=== PATIENT | female | born 1985 | race Caucasian/White ===

== ENCOUNTER 2018-02-08 23:02 | Observation (INO) | payer OTHER ==
[2018-02-09 01:14] VITALS: BP 86/49; PULSE 103
== END 2018-02-09 01:40 | disposition home or self-care (01) ==
LOC: UNDOADMOB 23:02 → OB 23:02 → UNDODISOB 02-09 01:40
PROVIDERS: ADMIT Family Medicine; ATTEND Family Medicine
DX: Z34.83 Encounter for supervision of other normal pregnancy, third trimester (principal)
CPT/HCPCS: G0378 ×3

== ENCOUNTER 2018-02-12 04:13 | Inpatient (IN) | payer OTHER ==
[2018-02-12] MEDS ORDERED: BRETHINE 1 MG/ML SQ PRN (04:57)
[2018-02-12] MEDS ORDERED: Zofran 4 MG/2 ML VIAL IV PRN (04:58)
[2018-02-12] MEDS ORDERED: TYLENOL EXTRA STRENGTH 500 MG PO PRN ×2 (04:58→18:56)
[2018-02-12] MEDS ORDERED: PITOCIN 30 UNITS/ LR 500 ML 500 ML IV SCH ×2 (05:00)
[2018-02-12] MEDS ORDERED: Lactated Ringers 1,000 ML IV SCH (05:00)
[2018-02-12 06:29] LABS: BASOPHIL % 0.3 % (0.0-0.4); Basophil (Absolute #) 0.03 (0-0.4); Eosinophil % 1.7 % (0.00-5.0); Eosinophil (Absolute #) 0.16 (0-0.5); Granulocytes % 67.8 % (36.0-66.0); Hematocrit 32.3 % (35-47); Hemoglobin 11.1 gm/dl (12.0-16.0); Lymphocytes % 24.3 % (24.0-44.0); Mean Corpuscular Hgb Concent. 34.4 g/dl (32-36); Monocyte (Absolute #) 0.56 (0.0-1.3); Monocytes % 5.9 % (0.0-12.0); Platelet Count 336 K/mm3 (150-450); Red Blood Count 3.63 M/mm3 (4.1-5.4); Red Cell Distribution Width 13.2 % (11.5-14.0); White Blood Count 9.5 K/mm3 (4.0-10.5)
[2018-02-12 06:30] LABS: Mean Corpuscular Hemoglobin 30.5 pg (26-32)
[2018-02-12 06:51] VITALS: O2SAT 99
[2018-02-12 07:31] LABS: Amphetamine,Urine NEGATIVE (NEGATIVE); Barbiturate,Urine NEGATIVE (NEGATIVE); Benzodiazepine,Urine NEGATIVE (NEGATIVE); Cocaine,Urine NEGATIVE (NEGATIVE); Methadone,Urine NEGATIVE (NEGATIVE); Opiate,Urine NEGATIVE (NEGATIVE); PCP,Urine NEGATIVE (NEGATIVE); THC,Urine NEGATIVE (NEGATIVE)
[2018-02-12] MEDS ORDERED: Lactated Ringers 1,000 ML IV ONE ×2 (09:14→09:24)
[2018-02-12] MEDS ORDERED: OB EPIDURAL NAROPIN/SUFENTANIL IN NACL EPIDURAL PRN ×2 (09:14→09:24)
[2018-02-12] MEDS ORDERED: Ephedrine Sulfate 50 MG/ML IV PRN (09:14)
[2018-02-12] MEDS ORDERED: Dulcolax 10 MG SUPP PR PRN (18:56)
[2018-02-12] MEDS ORDERED: TUCKS TP PRN (18:56)
[2018-02-12] MEDS ORDERED: Mylicon 80MG PO PRN (18:56)
[2018-02-12] MEDS ORDERED: Anucort-HC SUPPOSITORY PR PRN (18:56)
[2018-02-12] MEDS ORDERED: Dermoplast Spray TP PRN (18:56)
[2018-02-12] MEDS ORDERED: CORTISONE 1% CREAM TP PRN (18:56)
[2018-02-12] MEDS ORDERED: Ambien 10 MG PO PRN (18:56)
[2018-02-12] MEDS ORDERED: NORCO 5/325 MG PO PRN (18:56)
[2018-02-12] MEDS ORDERED: Restoril 15 MG PO PRN (18:56)
[2018-02-12] MEDS: MOTRIN 400 MG PO PRN (19:08)
[2018-02-12] MEDS: Colace 100 MG PO SCH (23:06)
[2018-02-13] MEDS: CLINDAMYCIN-D5W 900 MG/50 ML*** 900 MG/50 ML BAG IV SCH ×2 (00:48→00:49)
[2018-02-13] MEDS: MOTRIN 400 MG PO PRN ×3 (01:15→20:33)
[2018-02-13 07:31] LABS: Hematocrit 31.8 % (35-47); Hemoglobin 10.4 gm/dl (12.0-16.0); Mean Cell Volume 92.4 fl (78-100); Mean Corpuscular Hemoglobin 30.2 pg (26-32); Mean Corpuscular Hgb Concent. 32.7 g/dl (32-36); Mean Platelet Volume 10.3 fl (6-9.5); Red Blood Count 3.44 M/mm3 (4.1-5.4); Red Cell Distribution Width 13.3 % (11.5-14.0); White Blood Count 11.1 K/mm3 (4.0-10.5)
[2018-02-13 08:11] LABS: Platelet Count 39 K/mm3 (150-450)
[2018-02-13 10:53] LABS: BAND 1 % (0.0-2.0); Eosinophil 1 % (0.00-3.0); Lymphocytes 36 % (24-44); Monocyte 3 % (0.0-12.0); Neutrophils 59 % (36.0-66.0); Total Cells Counted 100
[2018-02-13] MEDS: FERREX 150 PO SCH (12:16)
[2018-02-13] MEDS: Colace 100 MG PO SCH ×2 (12:16→21:36)
[2018-02-14] MEDS: Colace 100 MG PO SCH (09:29)
[2018-02-14] MEDS: FERREX 150 PO SCH (09:29)
[2018-02-14 14:58] VITALS: BP 116/55; PULSE 115
== END 2018-02-14 14:00 | disposition home or self-care (01) | DRG 775 ==
LOC: OB 05:18 → OBSVTOIN 08:25
PROVIDERS: ADMIT Family Medicine; ATTEND Family Medicine
PROC: 10E0XZZ Delivery of Products of Conception, External Approach (ICD-10-PCS; principal; 2018-02-12)
DX: O80 Encounter for full-term uncomplicated delivery (principal); Z3A.39 39 weeks gestation of pregnancy; Z37.0 Single live birth
CPT/HCPCS: 36415; 80307; 81003; 85025; G0378; J2590; J2795; A9270-GY

== ENCOUNTER 2020-01-10 15:11 | Emergency (ER) | payer OTHER ==
[2020-01-10] MEDS ORDERED: Sodium Chloride 0.9% 1000 ML 1,000 ML IV STA ×2 (15:16→17:03)
[2020-01-10] MEDS ORDERED: Sodium Chloride 0.9% 1000 ML 2,000 ML ONE (15:18)
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
[2020-01-10 15:40] LABS: A-aADO2 48; ABG HEMOGLOBIN 11.2; ABG POTASSIUM 3.4 (3.5-5.1); ABG SITE LEFT RADIAL; ARTERIAL BLD GAS O2 SATURATION 96.9 % (95-100); ARTERIAL BLOOD GAS FIO2 21 %; ARTERIAL BLOOD GAS PCO2 23 mmHg (35-45); ARTERIAL BLOOD GAS PO2 73 mmHg (75-100); ARTERIAL BLOOD GAS pH 7.47 (7.35-7.45); CARBOXYHEMOGLOBIN 4.3 % THgb (0.0-6.9); HCO3- 16.7 (22-28); HGB O2 SAT 91.9 g/dF (94-100); Methhemoglobin 0.8 % (1.4-1.5)
[2020-01-10 15:41] LABS: ALLEN TEST OK? YES
[2020-01-10 15:50] LABS: Basophil (Absolute #) 0 (0-0.4); Eosinophil (Absolute #) 0 (0-0.5); Hematocrit 31.2 % (35-47); Hemoglobin 10.9 gm/dl (12.0-16.0); Mean Cell Volume 88.4 fl (78-100); Mean Corpuscular Hemoglobin 30.9 pg (26-32); Mean Corpuscular Hgb Concent. 34.9 g/dl (32-36); Red Blood Count 3.53 M/mm3 (4.1-5.4); Red Cell Distribution Width 13.4 % (11.5-14.0); White Blood Count 4.6 K/mm3 (4.0-10.5)
[2020-01-10 16:01] LABS: ALBUMIN 2.2 g/dL (3.5-5.0); ALKALINE PHOSPHATASE 215 U/L (38-126); ANION GAP 20.1 MEQ/L (5-15); BLOOD UREA NITROGEN 57 mg/dL (7-17); CHLORIDE 98 mmol/L (98-107); Calcium 8.4 mg/dL (8.4-10.2); Creatinine 1 2.88 mg/dL (0.52-1.04); Glucose 78 mg/dL (74-106); MAGNESIUM 2.2 mg/dL (1.6-2.3); Potassium 3.3 mmol/L (3.5-5.1); SGOT/AST 35 U/L (14-36); SGPT/ALT 16 U/L (0-35); SODIUM 130 mmol/L (137-145)
[2020-01-10 16:03] LABS: Carbon Dioxide 15 mmol/L (22-30); ETHYL ALCOHOL < 10 mg/dL (0-10)
--- NOTE | 2020-01-10 16:32 | XRAY ---
Indication: Not mentally well. No care. Two-dimensional limited OB ultrasound performed. Comparison: None There is a single viable intrauterine currently in cephalic presentation. heart rate 129 BPM. Posterior placenta without abruption/previa. BPD measures 7.09 cm corresponding to 28 weeks 3 days. HC measures 25.17 cm corresponding to 27 weeks 2 days. AC measures 24.18 cm corresponding to 28 weeks 3 days. FL measures 4.77 cm corresponding to 26 weeks 0 days. ASHLEY is 11.2 cm. Impression: Single viable intrauterine with mean gestational age 27 weeks 4 days. Expected date confinement is April 06, 2020. Nothing acute.
[2020-01-10 16:45] LABS: Amourphous Crystal FEW /HPF (NEGATIVE); Appearance CLOUDY (CLEAR); Bacteria MANY /HPF (NEGATIVE); Bilirubin SMALL (NEGATIVE); Blood LARGE Ery/ul (0-5); Epithelial Cells RARE /HPF (FEW); Glucose 50 mg/dL (NEGATIVE); Ketones NEGATIVE (NEGATIVE); Leukocyte Esterase MODERATE (NEGATIVE); Mucus SLIGHT /HPF (NEGATIVE); Nitrite NEGATIVE (NEGATIVE); Non-Squamous Epithelial Cells RARE /HPF (FEW); Protein,Urine Dip 30 (Negative); RBC 51-100 /HPF (0-2); Specific Gravity 1.017 (1.005-1.025); Urobilinogen 4 mg/dL (0-1); WBC 26-50 /HPF (0-5)
[2020-01-10 16:54] LABS: Amphetamine,Urine NEGATIVE (NEGATIVE); Barbiturate,Urine NEGATIVE (NEGATIVE); Benzodiazepine,Urine NEGATIVE (NEGATIVE); Cocaine,Urine NEGATIVE (NEGATIVE); Methadone,Urine NEGATIVE (NEGATIVE); Opiate,Urine NEGATIVE (NEGATIVE); PCP,Urine NEGATIVE (NEGATIVE); THC,Urine NEGATIVE (NEGATIVE)
--- NOTE | 2020-01-10 16:54 | XRAY ---
Indication: DVT. 2-dimensional sonogram and color Doppler imaging of the major venous vessels of the left and right leg was performed. Comparison: None No thrombus seen in the examined deep venous vessels of the left and right leg including greater saphenous vein. Veins demonstrate normal compressibility. Venous waveforms are normal with and without augmentation. Impression: Left and right legs negative for DVT.
[2020-01-10 16:55] LABS: Platelet Count 3 K/mm3 (150-450)
[2020-01-10] MEDS ORDERED: ROCEPHIN 1 Gm-D5w 50 ml Bag** 1 G/50 ML IVPB IV STA (17:00)
[2020-01-10] MEDS ORDERED: ROCEPHIN 1 Gm-D5w 50 ml Bag** 1 G/50 ML IVPB IV ONE (17:03)
[2020-01-10] MEDS ORDERED: Zofran 4 MG/2 ML VIAL ONE (18:05)
[2020-01-10] MEDS: Zofran 4 MG/2 ML VIAL IV STA ×2 (18:10→18:17)
[2020-01-10 18:12] VITALS: O2SAT 98
[2020-01-10] MEDS ORDERED: MORPHINE SULFATE 2 MG INJ IV ONE (18:14)
[2020-01-10] MEDS ORDERED: MORPHINE SULFATE 2 MG INJ ONE (18:16)
[2020-01-10] MEDS ORDERED: Sodium Chloride 0.9% 1000 ML 1,000 ML ONE (18:17)
[2020-01-10 18:47] LABS: BAND 23 % (0.0-2.0); Lymphocytes 2 % (24-44); Metamyelocyte 1 %; Monocyte 2 % (0.0-12.0); Neutrophils 72 % (36.0-66.0); Total Cells Counted 100
[2020-01-10 18:48] LABS: Dohle Bodies 2+; Platelet Estimate DECREASED (NORMAL); Toxic Granulation 1+
[2020-01-10 18:53] LABS: Burr Cells 2+; Ovalocytes 1+
[2020-01-10 18:55] LABS: HELMET CELLS 1+
[2020-01-10] MEDS ORDERED: Sodium Chloride 0.9% 1000 ML 1,000 ML IV SCH (19:00)
[2020-01-10 19:12] VITALS: BP 98/52; PULSE 130
--- NOTE | 2020-01-11 08:31 | XRAY ---
Indication: Chest pain. Suspect Covid 19. Comparison: None Portable chest demonstrates scattered patchy airspace opacities, right greater than left without consolidation/large effusion. Remaining heart and bony thorax normal.
== END 2020-01-10 19:12 | disposition short-term general hospital (02) ==
LOC: ED 15:11 → EDSTATUS 15:11 → ED 19:12
DX: E87.1 Hypo-osmolality and hyponatremia (principal); R09.02 Hypoxemia; N17.9 Acute kidney failure, unspecified; E80.7 Disorder of bilirubin metabolism, unspecified; E87.2 Acidosis; D50.9 Iron deficiency anemia, unspecified; E88.09 Other disorders of plasma-protein metabolism, not elsewhere classified; D69.6 Thrombocytopenia, unspecified; J12.89 Other viral pneumonia
CPT/HCPCS: 36000; 36415; 36600; 51702; 71045; 76805; 80053; 80307; 81001; 82375; 82803; 83605; 83735; 84484; 85025; 87040; 87086; 87651; 93005; 93041; 93970; 94760; 96360; 96361; 96365; 96374; 96375; 96376; 99285; 99291; 99292; G0480; J0696; J2270; J2405